=== PATIENT | female | born 1935 | race Caucasian/White ===

== ENCOUNTER → 2017-07-30 | Outpatient (CLI) | payer OTHER ==
[2017-07-30 14:45] LABS: Source, Urine Clean Catch
[2017-07-30 16:33] LABS: Leukocyte Esterase, Urine 2+ (Neg); Nitrite, Urine Pos (Neg); Protein, Urine 1+ (Neg); Specific Gravity, Urine 1.015 (1.003-1.022)
[2017-07-30 16:34] LABS: Amorphous Light (0-Heavy); Appearance, Urine Cloudy (Clear); Bacteria Many /hpf; Bilirubin, Urine Neg (Neg); Blood, Urine 2+ (Neg); Color, Urine Yellow (P-Yellow); Glucose Qualitative, Urine Neg (Normal); Ketones, Urine Neg (Neg); Mucus Light (0-Heavy); Squamous Epithelial Cells Few /hpf (Few); Urobilinogen, Urine NORM (Normal); White Blood Cells, Urine TNTC /hpf (0-5)
[2017-07-30 16:35] LABS: Renal Epithelial Few /hpf (0-Rare)
[2017-07-30 16:51] LABS: Transitional Epithelial Cells Few /hpf (0-Rare)
== END ==
LOC: LAB SHORT 14:41
PROVIDERS: Family Medicine
DX: R41.0 Disorientation, unspecified (principal)
CPT/HCPCS: 81001; 87077; 87086; 87186